=== PATIENT | male | born 1960 | race Caucasian/White ===

== ENCOUNTER 2018-10-13 22:00 | Inpatient (IN) ==
[2018-10-14] MEDS ORDERED: *HR* OxyCODONE Immed Rel 15 MG TABLET PO PRN (17:38)
[2018-10-14] MEDS ORDERED: Artificial Tears SOLN 15 ML BOTTLE BOTH EYES PRN (17:39)
[2018-10-14] MEDS ORDERED: Ondansetron ODT 4 MG TAB.RAPDIS PO PRN (17:39)
[2018-10-14] MEDS ORDERED: Ipratropium/Albuterol Neb 3 ML IH PRN (17:39)
[2018-10-14] MEDS ORDERED: Fluconazole 100 MG TABLET PO PRN (17:39)
[2018-10-14] MEDS: Gabapentin 300 MG CAPSULE PO SCH (20:58)
[2018-10-14] MEDS: tiZANidine 4 MG TABLET PO SCH (20:58)
[2018-10-14] MEDS: diazePAM 5 MG TABLET PO PRN (20:58)
[2018-10-14] MEDS: *HR* OxyCODONE Immed Rel 15 MG TABLET PO PRN (20:58)
[2018-10-14] MEDS: Budesonide/Formoterol 160/4.5 1 PUFF INH IH SCH (22:25)
[2018-10-14] MEDS: Nystatin SUSP 5 ML UD.LIQ PO SCH (22:50)
[2018-10-15] MEDS: tiZANidine 4 MG TABLET PO SCH ×3 (05:25→17:33)
[2018-10-15] MEDS: Gabapentin 300 MG CAPSULE PO SCH ×3 (09:06→21:08)
[2018-10-15] MEDS: Nystatin SUSP 5 ML UD.LIQ PO SCH ×4 (09:06→21:19)
[2018-10-15] MEDS: *HR* Rivaroxaban 15 MG TABLET PO SCH ×2 (09:07→16:43)
[2018-10-15] MEDS: Cyanocobalamin (B-12) 1,000 MCG TABLET PO SCH (09:08)
[2018-10-15] MEDS: Aspirin Enteric Coated 81 MG Tablet PO SCH (09:08)
[2018-10-15] MEDS: *HR* OxyCODONE Immed Rel 15 MG TABLET PO PRN ×4 (09:08→21:08)
[2018-10-15] MEDS: amLODIPine 5 MG TABLET PO SCH (09:09)
[2018-10-15] MEDS: Gentamicin Oint 15 GM TUBE TP SCH (09:20)
[2018-10-15] MEDS: Budesonide/Formoterol 160/4.5 1 PUFF INH IH SCH ×2 (09:29→21:16)
--- NOTE | 2018-10-15 14:59 | Internal Med History&Physical ---
Date of Encounter: 10/15/18 Time of Encounter: 14:30 Assessment and Plan (1) Acute respiratory failure with hypoxia and hypercapnia Current visit: No Status: Acute Breathing appears satisfactory now. Continue Symbicort and prn albuterol nebs. (2) Anemia Current visit: Yes Status: Acute Check anemia testing in a.m. Qualifiers: Anemia type: unspecified type Qualified Code(s): D64.9 - Anemia, unspecified (3) Low TSH level Current visit: Yes Status: Acute TSH was low at 0.112 on 07/17/2018. Recheck in a.m. (4) Pulmonary embolism Current visit: No Status: Acute Continue Xarelto Qualifiers: Pulmonary embolism type: other Chronicity: acute Acute cor pulmonale presence: without acute cor pulmonale Qualified Code(s): I26.99 - Other pulmonary embolism without acute cor pulmonale (5) Small cell lung cancer Current visit: No Status: Acute As per oncologists (6) Hypertension Current visit: No Status: Acute Continue amlodipine and monitoring. Qualifiers: Hypertension type: essential hypertension Qualified Code(s): I10 - Essential (primary) hypertension Internal Medicine - H&P: HPI Chief complaint: Respiratory failure Admitted From: Hospital to Hospital Transfer Plans for Post Hospital Care: Home History of present illness: Mr. Butler is a 58 year old male was hospitalized at [facility] October 06- after presenting with sepsis, COPD exacerbation, acute hypoxic respiratory failure with encephalopathy and influenza A. He required endotracheal intubation. He completed a course of Tamiflu and azithromycin. He was found to have pulmonary emboli and was started on Xarelto. He was discharged to [facility] swing bed for rehabilitation therapy. Respiratory history is significant for having smoked from age 17 until May 2018. He smoked up to 3 packs per day. He reports having PFTs in the past with diagnosis of COPD. He wears oxygen at home. He qualified for BiPAP use on overnight oxygen saturation study at [facility]. Past Med Surg Social Fam HX - Past Medical History Medical history: arthritis, cancer, COPD, hypertension, other Additional medical history: stage III lung cancer Psychiatric history: depression - Past Surgical History Additional surgical history: back surgery - Social History Smoking Status: Current every day smoker Smokeless Tobacco Status: No Alcohol use: none Drug use: none - Family History Mother Living Status: Hx Family Cardiac Disorders: No Hx Family Respiratory Disorders: No Hx Family Cancer: Yes (Breast) Hx Family GI Disorders: No Hx Family Endocrine Disorder: No Hx Family Neuromuscular Disorders: No Hx Family Neurologic Disorders: No Hx Family HEENT Disorders: No Hx Family Autoimmune Disorders: No Father Living Status: Hx Family Cardiac Disorders: No Hx Family Respiratory Disorders: No Hx Family Cancer: Yes (Bladder cancer) Hx Family GI Disorders: No Hx Family Endocrine Disorder: No Hx Family Neuromuscular Disorders: No Hx Family Neurologic Disorders: No Hx Family HEENT Disorders: No Hx Family Autoimmune Disorders: No Internal Medicine - H&P: Meds Aspirin [Lo-Dose Aspirin EC] 81 mg PO DAILY 07/15/18 [History] Cyanocobalamin (Vitamin B-12) [Vitamin B-12] 100 mcg PO DAILY 07/15/18 [History] DULoxetine [Cymbalta] 30 mg PO DAILY 07/15/18 [History] Doxepin [Sinequan] 25 mg PO HS 07/15/18 [History] Gabapentin [Neurontin] 600 mg PO TID 07/15/18 [History] Meloxicam [Mobic] 15 mg PO DAILY 07/15/18 [History] Tizanidine HCl 4 mg PO Q8H 07/15/18 [History] amLODIPine [Norvasc] 5 mg PO DAILY #30 tablet 07/20/18 [Rx] Dexamethasone [Decadron] 4 mg PO BID PRN #45 tab 08/03/18 [Rx] Prochlorperazine Maleate [Compazine] 10 mg PO Q8HR PRN #90 tablet 08/03/18 [Rx] Budesonide/Formoterol 160/4.5 [Symbicort 160/4.5] 2 puff IH BIDR #1 inh 08/17/18 [Rx] Ipratropium/Albuterol Neb [Duoneb] 3 ml IH Q4HR PRN 30 Days #120 vial.neb 08/17/18 [Rx] Ondansetron HCl 8 mg PO Q8H PRN #45 tablet 09/07/18 [Rx] GuaiFENesin/Dextromethorphan [Tussin Dm Syrup] 10 ml PO QID PRN #240 ml 10/04/18 [Rx] Nystatin [Nystatin Suspension] 100,000 units PO QID #120 ml 10/05/18 [Rx] Sodium Chloride [Sodium Chloride Tab] 2 gm PO DAILY #60 tablet 10/05/18 [Rx] Albuterol Sulfate [Proair Hfa] 1 puff IH Q4H PRN 10/07/18 [History] Dronabinol [Marinol] 2.5 mg PO TID 10/07/18 [History] Fluconazole [Diflucan] 100 mg PO DAILY PRN 10/07/18 [History] Artificial Tears SOLN [Akwa Tears] 1 drop BOTH EYES Q2HR PRN bottle 10/13/18 [Rx] Collagenase Oint [Santyl] 1 appl TP DAILY tube 10/13/18 [Rx] Gentamicin Oint [Garamycin] 1 appl TP DAILY tube 10/13/18 [Rx] Rivaroxaban [Xarelto] 15 mg PO BIDWM tablet 10/13/18 [Rx] Rivaroxaban [Xarelto] 20 mg PO DAILY #30 tablet 10/13/18 [Rx] diazePAM [Valium] 5 mg PO BID PRN 5 Days #10 tablet 10/13/18 [Rx] Oxycodone HCl [Roxybond] 15 mg PO QID PRN 5 Days #20 tablet.orl 10/14/18 [Rx] Allergy/AdvReac Type Severity Reaction Status Date / Time Penicillins [PCN] Allergy See Verified 10/05/18 15:04 Comments venlafaxine AdvReac Gastrointestinal Verified 10/05/18 15:04 Upset All Systems PM: A 10-system review of systems was performed and is negative for pertinent findi ngs except as documented above in the HPI. Review of systems: Gen.: His weight has been stable proximal May 66 kg since June [address] [facility] stay Cardiovascular: Has history of hypertension. He had recent pulmonary embolus as per history of present illness. He denies CT heart failure or angina. Respiratory: As per history of present illness GI: He denies disorders of his liver gallbladder or exocrine pancreas : He denies hematuria dysuria or kidney stones Neurologic: He denies large discussion strokes or seizures. Endocrine: He denies diabetes thyroid disease or hyperlipidemia Hematology/oncology: He was diagnosed with small cell lung cancer May 2018. He has received chemotherapy. He is listed as having stage IV disease due to bilateral pulmonary nodules consistent with metastatic disease. PET/CT 09/22/2018 showed no other metastatic disease of solid organs or bones. He denies other malignancies. He has anemia. Psychiatric: He has anxiety and depression but denies other mental health issues. [place] skeletal: He has DJD with chronic low back pain. He denies gout or other bone joint or muscle disorders. - Constitutional Vitals: Temp Pulse Resp BP Pulse Ox 97.5 F L 99 18 110/72 92 10/15/18 06:48 10/15/18 06:48 10/15/18 09:30 10/15/18 06:48 10/15/18 09:30 Exam: Gen.: He is a well-developed lean male resting comfortably in bed who appears in no acute distress HEENT: Head is atraumatic and normocephalic. Eyes: EOMI. There is no scleral icterus. Mouth: Mucosa is moist Neck: There is no thyromegaly or adenopathy noted. Heart: Regular without murmurs gallops or ectopics Lungs: No wheezes or crackles are heard. Abdomen: Soft and nontender. No masses or guarding are noted. Extremities: There is no cyanosis edema or clubbing noted. Dorsalis pedis and posttibial pulses are trace to 1+ palpable bilaterally. 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 Neurologic: Mental status: He is talkative and a good historian. Cranial nerves: Smile is symmetric. Forehead wrinkles bilaterally. Tongue protrudes midline. EOMI. Motor: There is no pronator drift. Cerebellar: Finger to nose is intact bilaterally. Skin: Warm and dry
[2018-10-15] MEDS: diazePAM 5 MG TABLET PO PRN (21:08)
[2018-10-16] MEDS: tiZANidine 4 MG TABLET PO SCH ×3 (01:45→15:41)
[2018-10-16] MEDS: *HR* OxyCODONE Immed Rel 15 MG TABLET PO PRN ×5 (04:21→20:39)
[2018-10-16 06:29] LABS: Basophils # 0.1 K/mcL (0.0-0.2); Basophils % 0.9 %; Eosinophils # 0.1 K/mcL (0.0-0.6); Eosinophils % 1.5 %; Hematocrit 33.2 % (37.5-50.1); Hemoglobin 10.5 g/dL (12.9-16.9); Immature Granulocytes % 4.6 % (0-4); Lymphocytes # 2.1 K/mcL (0.6-4.6); Lymphocytes % 23.8 %; Mean Corpuscular HGB Conc 31.6 g/dL (31.6-35.5); Mean Corpuscular Volume 97.9 fL (83.0-100.0); Mean Platelet Volume 9.7 fL (9.4-12.4); Monocytes # 0.8 K/mcL (0.0-1.3); Monocytes % 8.9 %; Neutrophils # 5.3 K/mcL (1.6-8.9); Platelet Count 409 K/mcL (140-400); Red Blood Count 3.39 M/mcL (4.19-5.50); Red Cell Distribution Width 15.7 % (11.5-14.5); Segmented Neutrophils % 60.3 %
[2018-10-16 07:34] LABS: Thyroid Stimulating Hormone 0.981 mcIU/mL (0.340-5.600)
[2018-10-16] MEDS: Aspirin Enteric Coated 81 MG Tablet PO SCH (08:28)
[2018-10-16] MEDS: diazePAM 5 MG TABLET PO PRN ×2 (08:29→20:39)
[2018-10-16] MEDS: Gabapentin 300 MG CAPSULE PO SCH ×3 (08:29→20:39)
[2018-10-16] MEDS: Cyanocobalamin (B-12) 1,000 MCG TABLET PO SCH (08:29)
[2018-10-16] MEDS: amLODIPine 5 MG TABLET PO SCH (08:29)
[2018-10-16] MEDS: Nystatin SUSP 5 ML UD.LIQ PO SCH ×4 (08:32→20:39)
[2018-10-16] MEDS: *HR* Rivaroxaban 15 MG TABLET PO SCH ×2 (10:05→16:44)
[2018-10-16] MEDS: Budesonide/Formoterol 160/4.5 1 PUFF INH IH SCH ×2 (10:43→22:48)
[2018-10-16] MEDS: Gentamicin Oint 15 GM TUBE TP SCH (14:20)
[2018-10-16 17:12] LABS: Folate > 22.3 ng/mL (3.0-16.0); Vitamin B12 > 1500 pg/mL (250-1100)
[2018-10-17] MEDS: *HR* OxyCODONE Immed Rel 15 MG TABLET PO PRN ×6 (00:50→20:25)
[2018-10-17] MEDS: tiZANidine 4 MG TABLET PO SCH ×3 (00:51→15:39)
[2018-10-17] MEDS: diazePAM 5 MG TABLET PO PRN ×2 (08:14→20:25)
[2018-10-17] MEDS: Cyanocobalamin (B-12) 1,000 MCG TABLET PO SCH (08:14)
[2018-10-17] MEDS: Aspirin Enteric Coated 81 MG Tablet PO SCH (08:14)
[2018-10-17] MEDS: Gabapentin 300 MG CAPSULE PO SCH ×3 (08:14→20:25)
[2018-10-17] MEDS: *HR* Rivaroxaban 15 MG TABLET PO SCH ×2 (08:14→16:30)
[2018-10-17] MEDS: Nystatin SUSP 5 ML UD.LIQ PO SCH ×4 (08:15→20:27)
[2018-10-17] MEDS: amLODIPine 5 MG TABLET PO SCH (08:15)
[2018-10-17] MEDS: Gentamicin Oint 15 GM TUBE TP SCH (08:58)
[2018-10-17] MEDS: Budesonide/Formoterol 160/4.5 1 PUFF INH IH SCH ×2 (11:20→23:08)
--- NOTE | 2018-10-17 11:44 | Internal Med Progress Note ---
Date of Encounter: 10/17/18 Time of Encounter: 11:35 - Assessment and plan (1) Acute respiratory failure with hypoxia and hypercapnia Current Visit: No Status: Acute Assessment and plan: October 17. Continue Symbicort and prn albuterol nebs. (2) Anemia Current Visit: Yes Status: Acute Assessment and plan: October 17. Anemia testing shows iron 32, transferrin saturation 11%, transferrin 206, ferritin 285, B12 > 1500, and folate> 22.3. Start trial of ferrous sulfate with ascorbic acid. Qualifiers: Anemia type: unspecified type Qualified Code(s): D64.9 - Anemia, unspecifie d (3) Low TSH level Current Visit: Yes Status: Acute Assessment and plan: October 17. TSH level normal at 0.981. (4) Pulmonary embolism Current Visit: No Status: Acute Assessment and plan: October 17. Continue Xarelto. Qualifiers: Pulmonary embolism type: other Chronicity: acute Acute cor pulmonale presence: without acute cor pulmonale Qualified Code(s): I26.99 - Other pulmonary embolism without acute cor pulmonale (5) Small cell lung cancer Current Visit: No Status: Acute Assessment and plan: October 17. As per oncologist. (6) Hypertension Current Visit: No Status: Acute Assessment and plan: October 17. Continue amlodipine. Qualifiers: Hypertension type: essential hypertension Qualified Code(s): I10 - Essential (primary) hypertension (7) Hemoptysis Current Visit: Yes Status: Acute Assessment and plan: October 17. Likely due to aspirin and Xarelto use with multiple pulmonary metastases. Hold aspirin 48 hours and reassess. (8) Effusion, left knee Current Visit: Yes Status: Acute Assessment and plan: October 17. Hold aspirin 48 hours and reassess. - Subjective Interval history: October 17. He reports hemoptysis earlier today. He reports during therapy yesterday he felt increasing discomfort in his left knee and has noticed swelling today. - Constitutional Vitals: Temp Pulse Resp BP Pulse Ox 97.4 F L 104 16 115/78 92 10/17/18 06:38 10/17/18 06:38 10/17/18 06:38 10/17/18 06:38 10/17/18 09:10 Exam: He is resting comfortably in bed and appears in no acute distress at rest. His left knee shows increased warmth with effusion. There is no effusion in the right knee. I reviewed his medications and lab results. Internal Medicine: Result - Labs CBC & Chem 7: 10/16/18 05:11 Consult Discharge Plan - Plan Referrals: Kenny Santizo MD [Primary Care Provider] - 1 week
[2018-10-18] MEDS: tiZANidine 4 MG TABLET PO SCH ×4 (01:19→23:38)
[2018-10-18] MEDS: *HR* OxyCODONE Immed Rel 15 MG TABLET PO PRN ×6 (01:19→23:38)
[2018-10-18] MEDS: Ascorbic Acid 500 MG TABLET PO SCH (05:31)
[2018-10-18] MEDS: amLODIPine 5 MG TABLET PO SCH (08:19)
[2018-10-18] MEDS: Nystatin SUSP 5 ML UD.LIQ PO SCH ×4 (08:19→20:19)
[2018-10-18] MEDS: *HR* Rivaroxaban 15 MG TABLET PO SCH ×2 (08:19→16:53)
[2018-10-18] MEDS: Cyanocobalamin (B-12) 1,000 MCG TABLET PO SCH (08:19)
[2018-10-18] MEDS: Gabapentin 300 MG CAPSULE PO SCH ×3 (08:19→20:18)
[2018-10-18] MEDS: Gentamicin Oint 15 GM TUBE TP SCH (08:20)
[2018-10-18] MEDS: Budesonide/Formoterol 160/4.5 1 PUFF INH IH SCH ×2 (12:17→22:22)
[2018-10-18] MEDS: diazePAM 5 MG TABLET PO PRN ×2 (20:18→23:38)
[2018-10-19] MEDS: Ascorbic Acid 500 MG TABLET PO SCH (05:05)
[2018-10-19] MEDS: *HR* OxyCODONE Immed Rel 15 MG TABLET PO PRN ×5 (05:05→20:53)
[2018-10-19 06:15] LABS: Basophils # 0.1 K/mcL (0.0-0.2); Basophils % 0.6 %; Eosinophils # 0.2 K/mcL (0.0-0.6); Eosinophils % 1.4 %; Hematocrit 27.5 % (37.5-50.1); Hemoglobin 8.8 g/dL (12.9-16.9); Immature Granulocytes % 1.5 % (0-4); Lymphocytes % 17.7 %; Mean Corpuscular Hemoglobin 30.8 pg (28.0-33.3); Mean Corpuscular Volume 96.2 fL (83.0-100.0); Mean Platelet Volume 9.3 fL (9.4-12.4); Monocytes # 1.3 K/mcL (0.0-1.3); Monocytes % 11.5 %; Neutrophils # 7.5 K/mcL (1.6-8.9); Platelet Count 521 K/mcL (140-400); Red Blood Count 2.86 M/mcL (4.19-5.50); Red Cell Distribution Width 14.6 % (11.5-14.5); Segmented Neutrophils % 67.3 %
[2018-10-19 06:34] LABS: BUN/Creatinine Ratio 15 (6-26); Blood Urea Nitrogen 6 mg/dL (6-20); Calcium 8.5 mg/dL (8.6-10.3); Carbon Dioxide 38 mEq/L (23-29); Chloride 90 mEq/L (98-107); Glucose 106 mg/dL (70-105); Osmolality,Calculated 268 (280-300); Potassium 3.9 mEq/L (3.5-5.1); Sodium 130 mEq/L (136-145); eGFR For Non-African Americans > 60 (> 60)
[2018-10-19] MEDS: *HR* Rivaroxaban 15 MG TABLET PO SCH ×2 (09:07→16:19)
[2018-10-19] MEDS: Cyanocobalamin (B-12) 1,000 MCG TABLET PO SCH (09:07)
[2018-10-19] MEDS: amLODIPine 5 MG TABLET PO SCH (09:07)
[2018-10-19] MEDS: Nystatin SUSP 5 ML UD.LIQ PO SCH ×4 (09:08→23:50)
[2018-10-19] MEDS: Gabapentin 300 MG CAPSULE PO SCH ×3 (09:08→20:54)
[2018-10-19] MEDS: tiZANidine 4 MG TABLET PO SCH ×3 (09:08→23:49)
[2018-10-19] MEDS: Budesonide/Formoterol 160/4.5 1 PUFF INH IH SCH ×2 (09:11→21:29)
[2018-10-19] MEDS: Gentamicin Oint 15 GM TUBE TP SCH (09:29)
--- NOTE | 2018-10-19 17:47 | Internal Med Progress Note ---
Date of Encounter: 10/19/18 Time of Encounter: 17:35 - Assessment and plan (1) Acute respiratory failure with hypoxia and hypercapnia Current Visit: No Status: Acute Assessment and plan: October 17. Continue Symbicort and prn albuterol nebs. (2) Anemia Current Visit: Yes Status: Acute Assessment and plan: October 17. Anemia testing shows iron 32, transferrin saturation 11%, transferrin 206, ferritin 285, B12 > 1500, and folate> 22.3. Start trial of ferrous sulfate with ascorbic acid. Qualifiers: Anemia type: unspecified type Qualified Code(s): D64.9 - Anemia, unspecifie d (3) Low TSH level Current Visit: Yes Status: Acute Assessment and plan: October 17. TSH level normal at 0.981. (4) Pulmonary embolism Current Visit: No Status: Acute Assessment and plan: October 17. Continue Xarelto. October 19. After considering options we agreed to decrease Xarelto to 20 mg daily. Qualifiers: Pulmonary embolism type: other Chronicity: acute Acute cor pulmonale presence: without acute cor pulmonale Qualified Code(s): I26.99 - Other pulmonary embolism without acute cor pulmonale (5) Small cell lung cancer Current Visit: No Status: Acute Assessment and plan: October 17. As per oncologist. October 19. He reported increased pain near the end of the dosing interval for oxycodone IR. Will transition to OxyContin for improved pain management. (6) Hypertension Current Visit: No Status: Acute Assessment and plan: October 17. Continue amlodipine. Qualifiers: Hypertension type: essential hypertension Qualified Code(s): I10 - E ssential (primary) hypertension (7) Hemoptysis Current Visit: Yes Status: Acute Assessment and plan: October 17. Likely due to aspirin and Xarelto use with multiple pulmonary metastases. Hold aspirin 48 hours and reassess. October 19. Remain off aspirin. Decrease Xarelto as per above. (8) Effusion, left knee Current Visit: Yes Status: Acute Assessment and plan: October 17. Hold aspirin 48 hours and reassess. - Subjective Interval history: October 17. He reports hemoptysis earlier today. He reports during therapy yesterday he felt increasing discomfort in his left knee and has noticed swelling today. October 19. He reports occasional hemoptysis despite being off aspirin. He reports he saw his medical oncologist yesterday who discontinued aspirin and suggested decrease in Xarelto if hemoptysis continued. He learned he has bony metastases. He reports significant back pain. - Constitutional Vitals: Temp Pulse Resp BP Pulse Ox 97.5 F L 93 18 100/64 96 10/19/18 06:44 10/19/18 06:44 10/19/18 09:12 10/19/18 06:44 10/19/18 09:12 Exam: He is resting in bed and appears in no acute distress. Affect is somewhat sad. I reviewed his medications and lab results. I discussed at length with him and his sister the oncologist comments. Internal Medicine: Result - Labs CBC & Chem 7: 10/19/18 04:50 10/19/18 04:50 Labs: Short CBC 10/19/18 Range/Units 04:50 WBC 11.1 (4.3-11.1) K/mcL Hgb 8.8 L (12.9-16.9) g/dL Hct 27.5 L (37.5-50.1) % Plt Count 521 H (140-400) K/mcL Neutrophils # 7.5 (1.6-8.9) K/mcL BMP 10/19/18 04:50 Sodium 130 L Potassium 3.9 Chloride 90 L Carbon Dioxide 38 H BUN 6 Creatinine 0.40 L Glucose 106 H Calcium 8.5 L Consult Discharge Plan - Plan Referrals: Kenny Santizo MD [Primary Care Provider] - 1 week
[2018-10-19] MEDS: diazePAM 5 MG TABLET PO PRN (20:53)
[2018-10-19] MEDS: *HR* OxyCODONE ER (12 HR) 10 MG TABLET PO SCH (23:49)
[2018-10-20] MEDS: *HR* OxyCODONE ER (12 HR) 10 MG TABLET PO SCH ×3 (00:46→15:47)
[2018-10-20] MEDS: *HR* OxyCODONE Immed Rel 15 MG TABLET PO PRN ×4 (04:18→20:10)
[2018-10-20] MEDS: Ascorbic Acid 500 MG TABLET PO SCH (05:16)
[2018-10-20 06:10] LABS: Basophils # 0.1 K/mcL (0.0-0.2); Basophils % 0.8 %; Eosinophils # 0.2 K/mcL (0.0-0.6); Eosinophils % 1.8 %; Hematocrit 25.5 % (37.5-50.1); Hemoglobin 8.3 g/dL (12.9-16.9); Immature Granulocytes % 1.4 % (0-4); Lymphocytes # 2.1 K/mcL (0.6-4.6); Mean Corpuscular HGB Conc 32.5 g/dL (31.6-35.5); Mean Corpuscular Hemoglobin 30.6 pg (28.0-33.3); Mean Corpuscular Volume 94.1 fL (83.0-100.0); Mean Platelet Volume 8.6 fL (9.4-12.4); Monocytes # 1.3 K/mcL (0.0-1.3); Monocytes % 13.1 %; Neutrophils # 6.1 K/mcL (1.6-8.9); Platelet Count 513 K/mcL (140-400); Red Blood Count 2.71 M/mcL (4.19-5.50); Red Cell Distribution Width 14.3 % (11.5-14.5); Segmented Neutrophils % 61.9 %
[2018-10-20] MEDS: tiZANidine 4 MG TABLET PO SCH ×2 (08:42→15:47)
[2018-10-20] MEDS: Cyanocobalamin (B-12) 1,000 MCG TABLET PO SCH (08:43)
[2018-10-20] MEDS: amLODIPine 5 MG TABLET PO SCH (08:43)
[2018-10-20] MEDS: *HR* Rivaroxaban 10 MG TABLET PO SCH (08:43)
[2018-10-20] MEDS: Gabapentin 300 MG CAPSULE PO SCH ×3 (08:43→20:10)
[2018-10-20] MEDS: Gentamicin Oint 15 GM TUBE TP SCH (08:50)
[2018-10-20] MEDS: Nystatin SUSP 5 ML UD.LIQ PO SCH ×4 (08:52→20:10)
[2018-10-20] MEDS: Budesonide/Formoterol 160/4.5 1 PUFF INH IH SCH ×2 (09:16→21:58)
[2018-10-20 11:28] LABS: ABG Base Excess 9 mEq/L (-2 to 3); ABG HCO3 36 mEq/L (21-27); ABG Oxygen Saturation 93 % (95-98); ABG PCO2 61 mmHg (35-45); ABG PH 7.37 pH Units (7.32-7.45); ABG PO2 72 mmHg (85-104); ABG TCO2 37 mEq/L (20-26)
--- NOTE | 2018-10-20 15:57 | Internal Med Progress Note ---
Date of Encounter: 10/20/18 Time of Encounter: 12:45 - Assessment and plan (1) Acute respiratory failure with hypoxia and hypercapnia Current Visit: No Status: Acute Assessment and plan: October 17. Continue Symbicort and prn albuterol nebs. October 20. ABG results noted. Continue Symbicort and nebs. (2) Anemia Current Visit: Yes Status: Acute Assessment and plan: October 17. Anemia testing shows iron 32, transferrin saturation 11%, transferrin 206, ferritin 285, B12 > 1500, and folate> 22.3. Start trial of ferrous sulfate with ascorbic acid. October 20. Check CBC in a.m. Qualifiers: Anemia type: unspecified type Qualified Code(s): D64.9 - Anemia, unspecified (3) Low TSH level Current Visit: Yes Status: Acute Assessment and plan: October 17. TSH level normal at 0.981. (4) Pulmonary embolism Current Visit: No Status: Acute Assessment and plan: October 17. Continue Xarelto. October 19. After considering options we agreed to decrease Xarelto to 20 mg daily. Qualifiers: Pulmonary embolism type: other Chronicity: acute Acute cor pulmonale presence: without acute cor pulmonale Qualified Code(s): I26.99 - Other pulmonary embolism without acute cor pulmonale (5) Small cell lung cancer Current Visit: No Status: Acute Assessment and plan: October 17. As per oncologist. October 19. He reported increased pain near the end of the dosing interval for oxycodone IR. Will transition to OxyContin for improved pain management. (6) Hypertension Current Visit: No Status: Acute Assessment and plan: October 17. Continue amlodipine. Qualifiers: Hypertension type: essential hypertension Qualified Code(s): I10 - Essential (primary) hypertension (7) Hemoptysis Current Visit: Yes Status: Acute Assessment and plan: October 17. Likely due to aspirin and Xarelto use with multiple pulmonary metastases. Hold aspirin 48 hours and reassess. October 19. Remain off aspirin. Decrease Xarelto as per above. (8) Effusion, left knee Current Visit: Yes Status: Acute Assessment and plan: October 17. Hold aspirin 48 hours and reassess. October 20. Remain off aspirin and reduced dose Xarelto. - Subjective Interval history: October 17. He reports hemoptysis earlier today. He reports during therapy yesterday he felt increasing discomfort in his left knee and has noticed swelling today. October 19. He reports occasional hemoptysis despite being off aspirin. He reports he saw his medical oncologist yesterday who discontinued aspirin and suggested decrease in Xarelto if hemoptysis continued. He learned he has bony metastases. He reports significant back pain. October 20. He has no new complaints. He states he feels less pain on OxyContin regimen. - Constitutional Vitals: Temp Pulse Resp BP Pulse Ox 98.2 F 84 18 103/67 96 10/20/18 07:23 10/20/18 07:23 10/20/18 09:18 10/20/18 07:23 10/20/18 09:18 Exam: He is sitting on the side of bed and appears in no acute distress. His affect is overall cheerful. I reviewed his medications and lab results. Internal Medicine: Result - Labs CBC & Chem 7: 10/20/18 06:00 10/19/18 04:50 Labs: Short CBC 10/20/18 Range/Units 06:00 WBC 9.8 (4.3-11.1) K/mcL Hgb 8.3 L (12.9-16.9) g/dL Hct 25.5 L (37.5-50.1) % Plt Count 513 H (140-400) K/mcL Neutrophils # 6.1 (1.6-8.9) K/mcL - ABG Interpretation ABG results: ABG ABG pH 7.37 pH Units (7.32-7.45) 10/20/18 11:24 ABG pCO2 61 mmHg (35-45) H 10/20/18 11:24 ABG pO2 72 mmHg (85-104) L 10/20/18 11:24 ABG O2 Saturation 93 % (95-98) L 10/20/18 11:24 Consult Discharge Plan - Plan Referrals: Kenny Santizo MD [Primary Care Provider] - 1 week
[2018-10-20] MEDS: diazePAM 5 MG TABLET PO PRN (20:10)
[2018-10-21] MEDS: tiZANidine 4 MG TABLET PO SCH ×3 (00:08→16:01)
[2018-10-21] MEDS: *HR* OxyCODONE ER (12 HR) 10 MG TABLET PO SCH ×2 (00:08→08:37)
[2018-10-21] MEDS: Ascorbic Acid 500 MG TABLET PO SCH (05:35)
[2018-10-21] MEDS: *HR* OxyCODONE Immed Rel 15 MG TABLET PO PRN ×4 (05:39→19:35)
[2018-10-21 06:39] LABS: Basophils # 0.1 K/mcL (0.0-0.2); Basophils % 0.7 %; Eosinophils # 0.2 K/mcL (0.0-0.6); Eosinophils % 1.5 %; Hematocrit 26.6 % (37.5-50.1); Hemoglobin 8.8 g/dL (12.9-16.9); Immature Granulocytes % 1.1 % (0-4); Lymphocytes # 1.4 K/mcL (0.6-4.6); Mean Corpuscular HGB Conc 33.1 g/dL (31.6-35.5); Mean Corpuscular Hemoglobin 31.1 pg (28.0-33.3); Mean Platelet Volume 9.3 fL (9.4-12.4); Monocytes # 1.4 K/mcL (0.0-1.3); Monocytes % 13.4 %; Neutrophils # 7.5 K/mcL (1.6-8.9); Platelet Count 604 K/mcL (140-400); Red Blood Count 2.83 M/mcL (4.19-5.50); Red Cell Distribution Width 14.2 % (11.5-14.5); Segmented Neutrophils % 70.3 %
[2018-10-21] MEDS: *HR* Rivaroxaban 10 MG TABLET PO SCH (08:37)
[2018-10-21] MEDS: Gabapentin 300 MG CAPSULE PO SCH ×3 (08:37→20:53)
[2018-10-21] MEDS: amLODIPine 5 MG TABLET PO SCH (08:39)
[2018-10-21] MEDS: Cyanocobalamin (B-12) 1,000 MCG TABLET PO SCH (08:39)
[2018-10-21] MEDS: Nystatin SUSP 5 ML UD.LIQ PO SCH ×4 (08:41→20:53)
[2018-10-21] MEDS: Gentamicin Oint 15 GM TUBE TP SCH (08:42)
--- NOTE | 2018-10-21 10:23 | Internal Med Progress Note ---
Date of Encounter: 10/21/18 Time of Encounter: 10:00 - Assessment and plan (1) Acute respiratory failure with hypoxia and hypercapnia Current Visit: No Status: Acute Assessment and plan: October 17. Continue Symbicort and prn albuterol nebs. October 20. ABG results noted. Continue Symbicort and nebs. (2) Anemia Current Visit: Yes Status: Acute Assessment and plan: October 17. Anemia testing shows iron 32, transferrin saturation 11%, transferrin 206, ferritin 285, B12 > 1500, and folate> 22.3. Start trial of ferrous sulfate with ascorbic acid. October 20. Check CBC in a.m. October 21. Hemoglobin improved at 8.8. Qualifiers: Anemia type: unspecified type Qualified Code(s): D64.9 - Anemia, unspecified (3) Low TSH level Current Visit: Yes Status: Acute Assessment and plan: October 17. TSH level normal at 0.981. (4) Pulmonary embolism Current Visit: No Status: Acute Assessment and plan: October 17. Continue Xarelto. October 19. After considering options we agreed to decrease Xarelto to 20 mg daily. Qualifiers: Pulmonary embolism type: other Chronicity: acute Acute cor pulmonale presence: without acute cor pulmonale Qualified Code(s): I26.99 - Other pulmonary embolism without acute cor pulmonale (5) Small cell lung cancer Current Visit: No Status: Acute Assessment and plan: October 17. As per oncologist. October 19. He reported increased pain near the end of the dosing interval for oxycodone IR. Will transition to OxyContin for improved pain management. October 21. He feels groggy on OxyContin. Will change back to to oxycodone IR. (6) Hypertension Current Visit: No Status: Acute Assessment and plan: October 17. Continue amlodipine. Qualifiers: Hypertension type: essential hypertension Qualified Code(s): I10 - Essential (primary) hypertension (7) Hemoptysis Current Visit: Yes Status: Acute Assessment and plan: October 17. Likely due to aspirin and Xarelto use with multiple pulmonary metastases. Hold aspirin 48 hours and reassess. October 19. Remain off aspirin. Decrease Xarelto as per above. (8) Effusion, left knee Current Visit: Yes Status: Acute Assessment and plan: October 17. Hold aspirin 48 hours and reassess. October 20. Remain off aspirin and continue reduced dose Xarelto. - Subjective Interval history: October 17. He reports hemoptysis earlier today. He reports during therapy yesterday he felt increasing discomfort in his left knee and has noticed swelling today. October 19. He reports occasional hemoptysis despite being off aspirin. He repo rts he saw his medical oncologist yesterday who discontinued aspirin and suggested decrease in Xarelto if hemoptysis continued. He learned he has bony metastases. He reports significant back pain. October 20. He has no new complaints. He states he feels less pain on OxyContin regimen. October 21. He states he feels "groggy" on OxyContin and wishes to go back to oxycodone IR. He has no new complaints otherwise. - Constitutional Vitals: Temp Pulse Resp BP Pulse Ox 98.0 F 80 20 91/52 90 10/21/18 06:31 10/21/18 06:31 10/21/18 06:31 10/21/18 06:31 10/21/18 06:31 Exam: He is resting comfortably in bed and appears in no acute distress. He answers questions appropriately. I reviewed his medications and lab results. Internal Medicine: Result - Labs CBC & Chem 7: 10/21/18 05:35 10/19/18 04:50 Labs: Short CBC 10/21/18 Range/Units 05:35 WBC 10.7 (4.3-11.1) K/mcL Hgb 8.8 L (12.9-16.9) g/dL Hct 26.6 L (37.5-50.1) % Plt Count 604 H (140-400) K/mcL Neutrophils # 7.5 (1.6-8.9) K/mcL - ABG Interpretation ABG results: ABG ABG pH 7.37 pH Units (7.32-7.45) 10/20/18 11:24 ABG pCO2 61 mmHg (35-45) H 10/20/18 11:24 ABG pO2 72 mmHg (85-104) L 10/20/18 11:24 ABG O2 Saturation 93 % (95-98) L 10/20/18 11:24 Consult Discharge Plan - Plan Referrals: Kenny Santizo MD [Primary Care Provider] - 1 week
[2018-10-21] MEDS: Budesonide/Formoterol 160/4.5 1 PUFF INH IH SCH ×2 (10:39→22:01)
[2018-10-21] MEDS: diazePAM 5 MG TABLET PO PRN (20:53)
[2018-10-22] MEDS: *HR* OxyCODONE Immed Rel 15 MG TABLET PO PRN ×2 (05:58→10:11)
[2018-10-22] MEDS: tiZANidine 4 MG TABLET PO SCH ×2 (05:58→10:32)
[2018-10-22] MEDS: Ascorbic Acid 500 MG TABLET PO SCH (05:58)
[2018-10-22 07:17] VITALS: BP 95/55
--- NOTE | 2018-10-22 09:39 | Discharge Summary ---
Date of Encounter: 10/22/18 Time of Encounter: 09:24 - Discharge Diagnosis (1) Acute respiratory failure with hypoxia and hypercapnia Priority: Primary Status: Acute (2) Anemia Priority: Secondary Status: Acute Qualifiers: Anemia type: unspecified type Qualified Code(s): D64.9 - Anemia, unspecified (3) Pulmonary embolism Priority: Secondary Status: Acute Qualifiers: Pulmonary embolism type: other Chronicity: acute Acute cor pulmonale presence: without acute cor pulmonale Qualified Code(s): I26.99 - Other pulmonary embolism without acute cor pulmonale (4) Small cell lung cancer Priority: Secondary Status: Acute (5) Hypertension Priority: Secondary Status: Acute Qualifiers: Hypertension type: essential hypertension Qualified Code(s): I10 - Essential (primary) hypertension (6) Hemoptysis Priority: Secondary Status: Acute (7) Effusion, left knee Priority: Secondary Status: Acute Hospital course: Mr. Butler is a 58 year old male who was hospitalized at [facility] October 06- after presenting with sepsis, COPD exacerbation, acute hypoxic respiratory failure with encephalopathy and influenza A. He required endotracheal intubation. He completed a course of Tamiflu and azithromycin. He was found to have pulmonary emboli and was started on Xarelto. He was discharged to [facility] swing bed for rehabilitation therapy. Initial orders were written by the discharging physician at [facility]. I saw him on October 15 and performed a swing bed history and physical. He had episodes of hemoptysis which I felt was likely due to known pulmonary metastatic disease and use of aspirin/Xarelto. Aspirin was discontinued by his oncologist. Xarelto dose was reduced to 20 mg daily. He had no further hemoptysis the last 48 hours of hospitalization. Anemia testing showed iron 32, transferrin saturation 11%, transferrin 206, ferritin 85, B12> 1500, and folate > 22.3. He was started on ferrous sulfate with ascorbic acid. Hemoglobin was stable at 8.8 on day prior to discharge. A trial of OxyContin was given to see if he would have improved pain control. He reported excessive grogginess and OxyContin was discontinued. He will remain on oxycodone IR. TSH returned normal at 0.981. On October 22 arrangements were complete for him to be discharged home. He will follow with his PCP Dr. Santizo within 1 week. He will follow with oncologist as directed. Home BiPAP will be set up prior to discharge home. - Time Spent with Patient Total time spent providing and/or coordinating discharge services: - Discharge Medications Prescriptions: New Ascorbic Acid [Vitamin C] 500 mg PO DAILY@0630 tablet Ferrous Sulfate 325 mg PO DAILY@0630 tablet Continue Tizanidine HCl 4 mg PO Q8H Doxepin [Sinequan] 25 mg PO HS Cyanocobalamin (Vitamin B-12) [Vitamin B-12] 100 mcg PO DAILY DULoxetine [Cymbalta] 30 mg PO DAILY Gabapentin [Neurontin] 600 mg PO TID Prochlorperazine Maleate [Compazine] 10 mg PO Q8HR PRN #90 tablet PRN Reason: Nausea Dexamethasone [Decadron] 4 mg PO BID PRN #45 tab PRN Reason: as directed Budesonide/Formoterol 160/4.5 [Symbicort 160/4.5] 2 puff IH BIDR #1 inh Ipratropium/Albuterol Neb [Duoneb] 3 ml IH Q4HR PRN 30 Days #120 vial.neb PRN Reason: sob Ondansetron HCl 8 mg PO Q8H PRN #45 tablet PRN Reason: Nausea GuaiFENesin/Dextromethorphan [Tussin Dm Syrup] 10 ml PO QID PRN #240 ml PRN Reason: cough and congestion Nystatin [Nystatin Suspension] 100,000 units PO QID #120 ml Sodium Chloride [Sodium Chloride Tab] 2 gm PO DAILY #60 tablet Albuterol Sulfate [Proair Hfa] 1 puff IH Q4H PRN PRN Reason: sob Fluconazole [Diflucan] 100 mg PO DAILY PRN PRN Reason: THRUSH Dronabinol [Marinol] 2.5 mg PO TID Artificial Tears SOLN [Akwa Tears] 1 drop BOTH EYES Q2HR PRN bottle PRN Reason: Dry Eyes Collagenase Oint [Santyl] 1 appl TP DAILY tube Gentamicin Oint [Garamycin] 1 appl TP DAILY tube Rivaroxaban [Xarelto] 20 mg PO DAILY #30 tablet Discontinued Meloxicam [Mobic] 15 mg PO DAILY Aspirin [Lo-Dose Aspirin EC] 81 mg PO DAILY amLODIPine [Norvasc] 5 mg PO DAILY #30 tablet Rivaroxaban [Xarelto] 15 mg PO BIDWM tablet Home Medications: Cyanocobalamin (Vitamin B-12) [Vitamin B-12] 100 mcg PO DAILY 07/15/18 [History] DULoxetine [Cymbalta] 30 mg PO DAILY 07/15/18 [History] Doxepin [Sinequan] 25 mg PO HS 07/15/18 [History] Gabapentin [Neurontin] 600 mg PO TID 07/15/18 [History] Tizanidine HCl 4 mg PO Q8H 07/15/18 [History] Dexamethasone [Decadron] 4 mg PO BID PRN #45 tab 08/03/18 [Rx] Prochlorperazine Maleate [Compazine] 10 mg PO Q8HR PRN #90 tablet 08/03/18 [Rx] Budesonide/Formoterol 160/4.5 [Symbicort 160/4.5] 2 puff IH BIDR #1 inh 08/17/18 [Rx] Ipratropium/Albuterol Neb [Duoneb] 3 ml IH Q4HR PRN 30 Days #120 vial.neb 08/17/18 [Rx] Ondansetron HCl 8 mg PO Q8H PRN #45 tablet 09/07/18 [Rx] GuaiFENesin/Dextromethorphan [Tussin Dm Syrup] 10 ml PO QID PRN #240 ml 10/04/18 [Rx] Nystatin [Nystatin Suspension] 100,000 units PO QID #120 ml 10/05/18 [Rx] Sodium Chloride [Sodium Chloride Tab] 2 gm PO DAILY #60 tablet 10/05/18 [Rx] Albuterol Sulfate [Proair Hfa] 1 puff IH Q4H PRN 10/07/18 [History] Dronabinol [Marinol] 2.5 mg PO TID 10/07/18 [History] Fluconazole [Diflucan] 100 mg PO DAILY PRN 10/07/18 [History] Artificial Tears SOLN [Akwa Tears] 1 drop BOTH EYES Q2HR PRN bottle 10/13/18 [Rx] Collagenase Oint [Santyl] 1 appl TP DAILY tube 10/13/18 [Rx] Gentamicin Oint [Garamycin] 1 appl TP DAILY tube 10/13/18 [Rx] Ascorbic Acid [Vitamin C] 500 mg PO DAILY@0630 tablet 10/22/18 [Rx] Ferrous Sulfate 325 mg PO DAILY@0630 tablet 10/22/18 [Rx] Rivaroxaban [Xarelto] 20 mg PO DAILY #30 tablet 10/22/18 [Rx] Allergies/Adverse Reactions: Allergy/AdvReac Type Severity Reaction Status Date / Time Penicillins [PCN] Allergy See Verified 10/05/18 15:04 Comments venlafaxine AdvReac Gastrointestinal Verified 10/05/18 15:04 Upset Date of admission: 10/14/18 17:13 Primary care physician: Kenny Santizo MD Consults: 10/14/18 17:32 Consult to Nutrition [CONS] Routine Comment: Consulting Provider: NUTRITION Reason for Dietary Consult: PO Supplementation Consult to Occupational Therapy [CONS] Routine Comment: Weakness Reason for Consult: Weakness Does patient have active BEDREST order?: No Is patient medically & hemodynamically stable?: Yes Patient assessed for mobility or mobilized this visit?: Yes Consult to Physical Therapy [CONS] Routine Comment: Weakness Reason for Consult: Weakness Does patient have active BEDREST order?: No Is patient medically & hemodynamically stable?: Yes Patient assessed for mobility or mobilized this visit?: Yes Consult to Heel Turner [CONS] Routine Reason for SW Consult: Discharge planning 10/19/18 16:11 Consult to Speech Therapy [CONS] Routine Comment: Evaluate, develop and implement POC Reason for Consult: diet modification Time Notified: 16:11 Call Completed: Yes - Constitutional Vitals: Temp Pulse Resp BP Pulse Ox 99.5 F 82 18 95/55 91 10/22/18 07:14 10/22/18 07:14 10/22/18 07:14 10/22/18 07:14 10/22/18 07:14 - Patient Status Disposition: Home Health Service - Discharge Instructions Follow Up With: Kenny Santizo MD [Primary Care Provider] - 1 week - Diet and Activity Activity: resume usual activities as tolerated, wear oxygen at all times Diet: advance to your usual diet
[2018-10-22] MEDS: Budesonide/Formoterol 160/4.5 1 PUFF INH IH SCH (10:06)
[2018-10-22] MEDS: Gabapentin 300 MG CAPSULE PO SCH (10:18)
[2018-10-22] MEDS: amLODIPine 5 MG TABLET PO SCH (10:18)
[2018-10-22] MEDS: Cyanocobalamin (B-12) 1,000 MCG TABLET PO SCH (10:18)
[2018-10-22] MEDS: Nystatin SUSP 5 ML UD.LIQ PO SCH (10:18)
[2018-10-22] MEDS: *HR* Rivaroxaban 10 MG TABLET PO SCH (10:18)
== END 2018-10-22 12:20 | disposition home health service (06) | DRG 189 ==
LOC: INPPIK → OBSVTOIN 10-14 17:13
PROVIDERS: ADMIT Internal Medicine; ATTEND Internal Medicine